=== PATIENT | male | born 2005 | race Caucasian/White ===

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

== ENCOUNTER 2023-09-12 16:37 | Outpatient (CLI) | payer BC, SELFPAY | END 2023-09-12 23:59 | disposition home or self-care (01) | LOC: LAB.DROPOF 16:37 | PROVIDERS: PCP Family Medicine; Visit Provider Family Medicine | DX: J02.9 Acute pharyngitis, unspecified (principal) | CPT/HCPCS: 87070; 87077 ==

== ENCOUNTER 2024-04-08 09:44 | Outpatient (CLI) | payer BC, SELFPAY | END 2024-04-08 23:59 | disposition home or self-care (01) | LOC: LAB.DROPOF 04-09 09:44 | PROVIDERS: PCP Nurse Practitioner Family; Visit Provider Nurse Practitioner Family | DX: R68.89 Other general symptoms and signs (principal) | CPT/HCPCS: 87070 ==